=== PATIENT | male | born 2000 | race Two or more races ===

== ENCOUNTER 2021-06-13 12:39 | Emergency (ER) | payer OTHER ==
[~2021-06-13] VITALS: Ht 165.1 cm; Wt 83.9 kg
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
[2021-06-13] MEDS ORDERED: LIDOCAINE 1%-EPI 1:100,000 20 ML VIAL ONE (14:04)
--- NOTE | 2021-06-13 14:06 | NUR ---
DR DOTSON AT BEDSIDE FOR EVAL.
[2021-06-13] MEDS ORDERED: ONDANSETRON 4 MG TAB.RAPDIS ONE (14:09)
[2021-06-13] MEDS ORDERED: HYDROCODONE/APAP 5/325MG TABLET ONE (14:09)
[2021-06-13] MEDS ORDERED: CEPHALEXIN MONOHYDRATE 500 MG CAPSULE PO ONE ×2 (14:13→14:30)
[2021-06-13] MEDS ORDERED: TDAP [DIPH/PERTUSSIS/TET] 0.5 ML VIAL IM ONE ×2 (14:13→14:30)
[2021-06-13] MEDS ORDERED: HYDROCODONE/APAP 5/325MG TABLET PO ONE (14:30)
[2021-06-13] MEDS ORDERED: ONDANSETRON 4 MG TAB.RAPDIS SL ONE (14:30)
[2021-06-13] MEDS ORDERED: LIDOCAINE 1%-EPI 1:100,000 20 ML VIAL TP ONE (14:30)
[2021-06-13] MEDS ORDERED: CEPH500C2 PO (16:09)
[2021-06-13] MEDS ORDERED: IBUP-1955 PO (16:10)
--- NOTE | 2021-06-13 16:43 | NUR ---
LAC REPAIR DONE BY JUDY STARR. PT IS MEDICALLY CLEARED. DISCHARGE HOME W/ CRUTCHES IN STABLE CONDITION.
[2021-06-13 16:44] VITALS: BP 136/82
== END 2021-06-13 16:45 | disposition home or self-care (01) ==
LOC: ER 12:45
DX: S71.111A Laceration without foreign body, right thigh, initial encounter (principal); W45.8XXA Other foreign body or object entering through skin, initial encounter; Y93.89 Activity, other specified; Y92.89 Other specified places as the place of occurrence of the external cause; Y99.0 Civilian activity done for income or pay
CPT/HCPCS: 12034; 73552; 90471; 90715; 99284; A6403 ×2; J3490; Q0162

== ENCOUNTER 2021-06-15 13:54 | Emergency (ER) | payer OTHER ==
[~2021-06-15] VITALS: Ht 165.1 cm; Wt 83.9 kg
[~2021-06-15 13:54] MED LIST: CEPH500C2 PO; IBUP-1955 PO
[2021-06-15 14:01] VITALS: BP 132/68
--- NOTE | 2021-06-15 14:05 | NUR ---
THE PATIENT BIBS FOR WOUND CHECK. LAC REPAIRED 2 DAYS AGO. NO SIGNS OF INFECTION NOTED. WILL CONTINUE TO MONITOR THE PATIENT.
--- NOTE | 2021-06-15 14:40 | NUR ---
SEEN AND EVALUATED BY DR HERNANDEZ. PROVIDED W/ WOUND CARE AND DRESSING CHANGE.
--- NOTE | 2021-06-15 14:53 | NUR ---
Patient discharged to home in stable condition. Written and verbal after care instructions given. Patient verbalizes understanding of instruction. Pt ambulatory with a steady gait w/ use of crutches.
== END 2021-06-15 14:54 | disposition home or self-care (01) ==
LOC: ER 13:58
DX: S71.111D Laceration without foreign body, right thigh, subsequent encounter (principal); X58.XXXD Exposure to other specified factors, subsequent encounter

== ENCOUNTER 2021-06-24 14:59 | Emergency (ER) | payer OTHER ==
[~2021-06-24] VITALS: Ht 165.1 cm; Wt 68.0 kg
[2021-06-24 15:14] VITALS: BP 125/75
--- NOTE | 2021-06-24 15:18 | NUR ---
The patient bibs for suture Removal Put in 06/15. Denies pain. No s/s infection noted. Will continue to monitor the patient.
--- NOTE | 2021-06-24 15:40 | NUR ---
Patient discharged to home in stable condition. Written and verbal after care instructions given. Patient verbalizes understanding of instruction.
== END 2021-06-24 15:41 | disposition home or self-care (01) ==
LOC: ER 15:02
DX: S71.111D Laceration without foreign body, right thigh, subsequent encounter (principal); Z79.899 Other long term (current) drug therapy; X58.XXXD Exposure to other specified factors, subsequent encounter